=== PATIENT | female | born 1985 | race Caucasian/White ===

== ENCOUNTER 2018-12-31 08:20 | Emergency (ER) | payer BC ==
[~2018-12-31] VITALS: Ht 170.2 cm; Wt 90.7 kg
[2018-12-31 08:20] VITALS: BP_SYST 107
[~2018-12-31 08:20] MED LIST: HYDR-4272 PO; IBUP-1969 PO
--- NOTE | 2018-12-31 08:20 | NUR ---
Patient to ER bed 4 to gown for evaluation. Side rails up. Report given to NIRMALA Mckee.
--- NOTE | 2018-12-31 08:21 | NUR ---
Patient is awake, alert, and oriented x4. Patient reports that she started having itchy elbows while eating dinner at a restaurant last night. When she got home she had red, itchy eyes. Patient woke up this morning feeling itchy all over. Patient presents with rash to elbows, both inner thighs, and behind both knees. Patient denies pain, nausea, vomiting.
--- NOTE | 2018-12-31 08:34 | NUR ---
ER Dr. Jamison at bedside examining patient.
[2018-12-31] MEDS ORDERED: PREDNISONE 20 MG TABLET PO ONE (08:45)
[2018-12-31] MEDS ORDERED: DIPHENHYDRAMINE INJ 50 MG/ML VIAL IM ONE (08:45)
--- NOTE | 2018-12-31 09:10 | NUR ---
Patient given written and verbal discharge instructions and verbalizes understanding. ER MD discussed with patient the results and treatment provided. Patient in stable condition. ID arm band removed. Rx of benadryl, prednisone given. Patient educated on pain management and to follow up with PMD. Pain Scale 0/10. Opportunity for questions provided and answered. Medication side effect fact sheet provided.
[2018-12-31 09:11] VITALS: BP_SYST 104
== END 2018-12-31 09:10 | disposition home or self-care (01) ==
LOC: SED 08:20
DX: T78.40XA Allergy, unspecified, initial encounter (principal); Z88.0 Allergy status to penicillin; Z79.899 Other long term (current) drug therapy; Y92.89 Other specified places as the place of occurrence of the external cause
CPT/HCPCS: 96372; 99283; J1200; J7512

== ENCOUNTER 2019-08-23 19:24 | Emergency (ER) | payer BC ==
[~2019-08-23] VITALS: Ht 170.2 cm; Wt 93.0 kg
[2019-08-23 20:11] VITALS: BP_SYST 118
--- NOTE | 2019-08-23 20:12 | NUR ---
Patient triaged and placed in waiting room. VSS and patient appears in no acute distress at this time. Accompanied by family, awaiting available bed, and MD notified of need for MSE.
--- NOTE | 2019-08-23 20:39 | NUR ---
Pt ambulatory to bed 3 for evaluation
[2019-08-23 20:40] LABS: BILIRUBIN,URINE NEGATIVE (NEGATIVE); BLOOD, URINE NEGATIVE (NEGATIVE); CLARITY/URINE CLEAR (CLEAR); COLOR,URINE YELLOW (YELLOW); GLUCOSE,URINE NEGATIVE (NEGATIVE); KETONES,URINE NEGATIVE (NEGATIVE); LEUKOCYTE ESTERASE ,URINE NEGATIVE (NEGATIVE); NITRITE, URINE NEGATIVE (NEGATIVE); PROTEIN URINE NEGATIVE (NEGATIVE); UROBILINOGEN,URINE 0.2 (0.2-1.0)
--- NOTE | 2019-08-23 20:40 | NUR ---
Pt brought in by self/family. Pt is awake, alert, oriented x4. Pt states that she has had RLQ pain abdominal pain and cramping radiating to her back. Pt states the pain and cramping started yesterday. Pt denies chest pain, nausea, vomiting, diarrhea, shortness of breath. Pt denies any other medical complaint at this time. Pt resting comfortably in ed bed, no acute distress. VSS
[2019-08-23] MEDS ORDERED: NACL 0.9% 1,000 ML IV ONE (21:26)
--- NOTE | 2019-08-23 21:35 | NUR ---
ER at bedside examining patient.
[2019-08-23 21:57] LABS: BASOPHILS # (AUTO) 0.1 K/uL (0.0-0.2); BASOPHILS % (AUTO) 0.8 % (0.0-2.0); EOSINOPHILS # (AUTO) 0.2 K/uL (0.0-0.4); EOSINOPHILS % (AUTO) 2.4 % (0.0-4.0); HEMATOCRIT 38.1 % (36-48); HEMOGLOBIN 12.1 g/dL (12.0-16.0); LYMPHOCYTES # (AUTO) 3.4 K/uL (1.0-5.5); MEAN CORPUSCULAR HEMOGLOBIN 24 pg (27-31); MEAN CORPUSCULAR HGB CONC 32 % (32-36); MEAN CORPUSCULAR VOLUME 76 fL (79.0-98.0); MONOCYTES # (AUTO) 0.5 K/uL (0.0-1.0); MONOCYTES % (AUTO) 6.5 % (1.7-9.3); NEUTROPHILS # (AUTO) 4.2 K/uL (1.8-7.7); NEUTROPHILS % (AUTO) 50.3 % (40.0-70.0); PLATELET COUNT (AUTO) 266 K/uL (130-430); RED BLOOD CELL COUNT(AUTO) 4.99 MIL/uL (4.2-6.2); RED CELL DISTRIBUTION WIDTH 18.1 % (9.0-15.0); WHITE BLOOD COUNT (AUTO) 8.4 K/uL (4.8-10.8)
[2019-08-23 22:02] LABS: CALCIUM 8.6 mg/dL (8.4-11.0); CREATININE 0.63 mg/dL (0.55-1.30); POTASSIUM 4.3 mmol/L (3.5-5.1)
[2019-08-23 22:03] LABS: INR 0.9 (0.8-1.2); PROTHROMBIN TIME 9.3 SECS (9.5-12.5)
[2019-08-23 22:06] LABS: ALBUMIN 3.7 g/dL (3.4-4.8); TOTAL BILIRUBIN 0.2 mg/dL (0.0-1.0)
[2019-08-23] MEDS ORDERED: ONDANSETRON HCL 4 MG/2 ML VIAL IVP ONE (22:15)
[2019-08-23] MEDS ORDERED: MORPHINE 4 MG/ML INJ. SYRINGE IVP ONE (22:15)
--- NOTE | 2019-08-23 23:00 | NUR ---
Pt resting in ED bed. Pt states she still had abd pain, with small increase in past few minutes
[2019-08-23] MEDS ORDERED: MORPHINE 2 MG/ML INJ. SYRINGE IVP ONE (23:30)
[2019-08-24 00:55] VITALS: BP_SYST 127
--- NOTE | 2019-08-24 00:55 | NUR ---
Patient given written and verbal discharge instructions and verbalizes understanding. ER MD discussed with patient the results and treatment provided. Patient in stable condition. ID arm band removed. IV catheter removed intact and dressing applied, no active bleeding. Rx of Zofran and [place] 5/325 given. Patient educated on pain management and to follow up with PMD. Pain Scale 0/10. Opportunity for questions provided and answered. Medication side effect fact sheet provided.
== END 2019-08-24 00:55 | disposition home or self-care (01) ==
LOC: SED 19:24
DX: K29.70 Gastritis, unspecified, without bleeding (principal); K21.9 Gastro-esophageal reflux disease without esophagitis; K76.0 Fatty (change of) liver, not elsewhere classified; R11.0 Nausea; Z90.49 Acquired absence of other specified parts of digestive tract; Z88.0 Allergy status to penicillin
CPT/HCPCS: 36415; 74176; 80053; 81003; 81025; 82150; 83690; 85025; 85610; 96361; 96374; 96375; 96376; 99284; J2270 ×2; J2405; J7030

== ENCOUNTER 2020-12-26 21:41 | Emergency (ER) | payer BC ==
[~2020-12-26] VITALS: Ht 167.6 cm; Wt 86.2 kg
[2020-12-26 21:50] VITALS: BP_SYST 146
[2020-12-26] MEDS ORDERED: KETOROLAC TROMETHAMINE 60 MG/2 ML VIAL IM ONE (22:45)
[2020-12-26 23:16] LABS: BASOPHILS % (AUTO) 0.4 % (0.0-2.0); EOSINOPHILS # (AUTO) 0.2 K/uL (0.0-0.4); EOSINOPHILS % (AUTO) 1.6 % (0.0-4.0); HEMATOCRIT 35.9 % (36-48); HEMOGLOBIN 11.9 g/dL (12.0-16.0); LYMPHOCYTES # (AUTO) 3.5 K/uL (1.0-5.5); LYMPHOCYTES % (AUTO) 33.6 % (20.5-51.5); MEAN CORPUSCULAR HEMOGLOBIN 28 pg (27-31); MEAN CORPUSCULAR HGB CONC 33 % (32-36); MEAN CORPUSCULAR VOLUME 83 fL (79.0-98.0); MONOCYTES # (AUTO) 0.7 K/uL (0.0-1.0); MONOCYTES % (AUTO) 6.7 % (1.7-9.3); NEUTROPHILS % (AUTO) 57.7 % (40.0-70.0); PLATELET COUNT (AUTO) 202 K/uL (130-430); RED CELL DISTRIBUTION WIDTH 14.9 % (9.0-15.0); WHITE BLOOD COUNT (AUTO) 10.4 K/uL (4.8-10.8)
[2020-12-26 23:25] LABS: CALCIUM 8.7 mg/dL (8.4-11.0); CREATININE 0.89 mg/dL (0.55-1.30); POTASSIUM 3.5 mmol/L (3.5-5.1)
[2020-12-26 23:29] LABS: INR 0.9 (0.8-1.2); PROTHROMBIN TIME 9.3 SECS (9.5-12.5)
[2020-12-26 23:31] VITALS: BP_SYST 111
[2020-12-26 23:31] LABS: ALBUMIN 3.9 g/dL (3.4-4.8); TOTAL BILIRUBIN 0.2 mg/dL (0.0-1.0)
[2020-12-27] MEDS ORDERED: IBUP-1969 PO (00:37)
== END 2020-12-27 00:41 | disposition home or self-care (01) ==
LOC: SED 21:41
DX: M79.662 Pain in left lower leg (principal); Z88.0 Allergy status to penicillin; Z79.899 Other long term (current) drug therapy
CPT/HCPCS: 36415; 73610; 80053; 81025; 82550; 85025; 85610; 85730; 93971; 96372; 99285; J1885

== ENCOUNTER 2021-10-14 09:38 | Emergency (ER) | payer BC ==
[~2021-10-14] VITALS: Ht 170.2 cm; Wt 88.5 kg
[2021-10-14 09:38] VITALS: BP_SYST 120
--- NOTE | 2021-10-14 09:38 | NUR ---
Pt triaged and placed in room 8.
--- NOTE | 2021-10-14 09:50 | NUR ---
Report given to Piero SILVESTRE to assume care of patient.
--- NOTE | 2021-10-14 09:55 | NUR ---
Assessed patient at bedside. Connected to monitors. Patient presented stable vital signs.
--- NOTE | 2021-10-14 09:57 | NUR ---
ER DR. MANSFIELD AT THE BEDSIDE EXAMINING PT
--- NOTE | 2021-10-14 10:00 | NUR ---
PT CAME IN FROM HOME C/O PAIN TO MIDDLE OF CHEST NON-RADIATING STARTING AROUND 0900. PT DENIES ANY MEDICAL HX. PT IS AMBULATORY, AAOX4, VSS, REPORTS FEELING ANXIOUS
[2021-10-14 11:13] LABS: BASOPHILS # (AUTO) 0.1 K/uL (0.0-0.2); BASOPHILS % (AUTO) 2.2 % (0.0-2.0); EOSINOPHILS # (AUTO) 0.1 K/uL (0.0-0.4); EOSINOPHILS % (AUTO) 2.2 % (0.0-4.0); HEMATOCRIT 41.6 % (36-48); HEMOGLOBIN 13.7 g/dL (12.0-16.0); LYMPHOCYTES # (AUTO) 1.3 K/uL (1.0-5.5); LYMPHOCYTES % (AUTO) 23.2 % (20.5-51.5); MEAN CORPUSCULAR HEMOGLOBIN 27 pg (27-31); MEAN CORPUSCULAR HGB CONC 33 % (32-36); MEAN CORPUSCULAR VOLUME 82 fL (79.0-98.0); MONOCYTES # (AUTO) 0.4 K/uL (0.0-1.0); NEUTROPHILS # (AUTO) 3.5 K/uL (1.8-7.7); NEUTROPHILS % (AUTO) 65.4 % (40.0-70.0); PLATELET COUNT (AUTO) 238 K/uL (130-430); RED BLOOD CELL COUNT(AUTO) 5.08 MIL/uL (4.2-6.2); RED CELL DISTRIBUTION WIDTH 14.8 % (9.0-15.0); WHITE BLOOD COUNT (AUTO) 5.4 K/uL (4.8-10.8)
[2021-10-14] MEDS ORDERED: ALPRAZolam 0.25 MG TABLET PO ONE (11:15)
[2021-10-14 11:27] LABS: ANION GAP 8 (5-15); CHLORIDE 106 mmol/L (98-107); CREATININE 0.56 mg/dL (0.55-1.30); GLUCOSE 99 mg/dL (70-99); POTASSIUM 3.9 mmol/L (3.5-5.1); SODIUM SERUM 138 mmol/L (136-145); UREA NITROGEN, BLOOD 8 mg/dL (8-21)
[2021-10-14 11:28] LABS: GFR AFRICAN AMERICAN 157 mL/min (>90)
[2021-10-14 11:36] LABS: ALANINE AMINOTRANSFERASE 23 U/L (12-78); ALBUMIN 3.7 g/dL (3.4-4.8); ASPARTATE AMINOTRANSFERASE 11 U/L (10-37); TOTAL BILIRUBIN 0.1 mg/dL (0.0-1.0)
[2021-10-14] MEDS ORDERED: ALPR0.5T PO (11:46)
--- NOTE | 2021-10-14 12:54 | NUR ---
Patient given written and verbal discharge instructions and verbalizes understanding. ER MD discussed with patient the results and treatment provided. Patient in stable condition. ID arm band removed. Rx of XANAX given. Patient educated on pain management and to follow up with PMD. Pain Scale 0/10. Opportunity for questions provided and answered. Medication side effect fact sheet provided.
[2021-10-14 12:59] VITALS: BP_SYST 121
== END 2021-10-14 12:59 | disposition home or self-care (01) ==
LOC: SED 09:38
DX: R07.2 Precordial pain (principal); K21.9 Gastro-esophageal reflux disease without esophagitis; Z88.0 Allergy status to penicillin; Z79.899 Other long term (current) drug therapy
CPT/HCPCS: 36415; 71045; 80053; 84484; 84703; 85025; 93005; 99285

== ENCOUNTER 2023-07-14 13:32 | Emergency (ER) | payer BC ==
[~2023-07-14] VITALS: Ht 170.2 cm; Wt 76.2 kg
[~2023-07-14 13:32] MED LIST changes: +ALPR0.5T PO
[2023-07-14 13:43] VITALS: BP_SYST 144; PULSE 61; RESP 18; TEMP 98.3; O2SAT 100
[2023-07-14 14:42] LABS: BASOPHILS % (AUTO) 0.6 % (0.0-2.0); EOSINOPHILS # (AUTO) 0.1 K/uL (0.0-0.4); EOSINOPHILS % (AUTO) 1.5 % (0.0-4.0); HEMATOCRIT 39.6 % (36-48); HEMOGLOBIN 13.3 g/dL (12.0-16.0); LYMPHOCYTES # (AUTO) 2.2 K/uL (1.0-5.5); LYMPHOCYTES % (AUTO) 37.1 % (20.5-51.5); MEAN CORPUSCULAR HEMOGLOBIN 29 pg (27-31); MEAN CORPUSCULAR HGB CONC 34 % (32-36); MEAN CORPUSCULAR VOLUME 86 fL (79.0-98.0); MONOCYTES # (AUTO) 0.3 K/uL (0.0-1.0); MONOCYTES % (AUTO) 5.5 % (1.7-9.3); NEUTROPHILS # (AUTO) 3.4 K/uL (1.8-7.7); NEUTROPHILS % (AUTO) 55.3 % (40.0-70.0); PLATELET COUNT (AUTO) 223 K/uL (130-430); RED BLOOD CELL COUNT(AUTO) 4.62 MIL/uL (4.2-6.2); RED CELL DISTRIBUTION WIDTH 14.1 % (9.0-15.0); WHITE BLOOD COUNT (AUTO) 6.1 K/uL (4.8-10.8)
[2023-07-14 14:58] LABS: CALCIUM 8.6 mg/dL (8.4-11.0); CREATININE 0.6 mg/dL (0.55-1.30); POTASSIUM 4.2 mmol/L (3.5-5.1)
[2023-07-14 15:16] LABS: BILIRUBIN,URINE NEGATIVE (NEGATIVE); BLOOD, URINE NEGATIVE (NEGATIVE); CLARITY/URINE CLEAR (CLEAR); COLOR,URINE YELLOW (YELLOW); GLUCOSE,URINE NEGATIVE (NEGATIVE); KETONES,URINE NEGATIVE (NEGATIVE); LEUKOCYTE ESTERASE ,URINE NEGATIVE (NEGATIVE); NITRITE, URINE NEGATIVE (NEGATIVE); PH,URINE 6.5 (5.0-8.0); PROTEIN URINE NEGATIVE (NEGATIVE); UROBILINOGEN,URINE 0.2 (0.2-1.0)
[2023-07-14] MEDS ORDERED: KETOROLAC TROMETHAMINE 30 MG VIAL IVP ONE (15:30)
[2023-07-14] MEDS ORDERED: HYDR-3917 PO (16:29)
[2023-07-14 16:58] VITALS: BP_SYST 144; PULSE 61; RESP 18; TEMP 98.3; O2SAT 100
== END 2023-07-14 16:44 | disposition home or self-care (01) ==
LOC: SED 13:32
DX: R10.2 Pelvic and perineal pain (principal); K21.9 Gastro-esophageal reflux disease without esophagitis; Z88.0 Allergy status to penicillin; Z79.899 Other long term (current) drug therapy
CPT/HCPCS: 99285; 74177; 96374; 80048; 81001; 85025; 36415; 76376; 81003; J1885; Q9967